=== PATIENT | female | born 1935 | race Caucasian/White ===

== ENCOUNTER 2022-01-25 12:07 | Inpatient (IN) | payer MEDICARE, OTHER ==
[2022-01-25] MEDS ORDERED: hydrALAZINE 20 MG/ML VIAL ONE (13:11)
[2022-01-25] MEDS ORDERED: Ondansetron PF 4 MG/2 ML Vial IVP PRN (13:55)
[2022-01-25 14:03] LABS: Hemoglobin 11.8 g/dL (12.0-15.5); Mean Corpuscular HGB CONC 31.4 g/dL (32.0-36.0); Mean Corpuscular Hemoglobin 23.2 pg (27.0-33.0); Mean Corpuscular Volume 73.9 fl (81.6-98.3); Platelet Count 238 10x3/uL (150-450); RBC Distribution Width 18.1 % (11.5-14.5); Red Blood Cell (RBC) Count 5.09 10x6/uL (3.90-5.03); White Blood Cell (WBC) Count 20.2 10x3/uL (3.5-10.5)
[2022-01-25 14:05] LABS: MDiff Complete? YES
[2022-01-25] MEDS ORDERED: Morphine 4 MG/ML VIAL ONE (14:14)
[2022-01-25 14:17] LABS: ALT (SGPT) 17 U/L (8-55); AST (SGOT) 23 U/L (5-34); Albumin 3.9 g/dL (3.4-4.8); Alkaline Phosphatase 88 U/L (40-110); Anion Gap 14 mmol/L (10-20); BUN (Urea Nitrogen) 23 mg/dL (9.8-20.1); Bilirubin, Total 0.9 mg/dL (0.2-1.2); Calc. Creatinine Clearance 0 mL/min (70-130); Calcium 9.8 mg/dL (7.8-10.44); Carbon Dioxide 25 mmol/L (23-31); Chloride 104 mmol/L (98-107); Estimated GFR 72; Globulin 3.1 g/dL (2.4-3.5); Glucose 155 mg/dL (83-110); Potassium 3.3 mmol/L (3.5-5.1); Sodium 140 mmol/L (136-145)
[2022-01-25 14:26] LABS: Bilirubin Neg (Negative); Blood, Urine Negative (Negative); Clarity Slightly Cloudy (Clear); Glucose, Urine (Dipstick) Normal (Negative); Ketone, Urine Negative (Negative); Leukocyte Negative (Negative); Nitrite Positive (Negative); Protein, Urine (Dipstick) 15 mg/dl (Neg-Trace); Urobilinogen Normal mg/dL (Less than 2)
[2022-01-25 15:10] LABS: Prothrombin Time 10.9 sec (9.5-12.1)
[2022-01-25 15:19] LABS: Bacteria/HPF 4+ HPF (None Seen); RBC/HPF None Seen HPF (0-3); Squamous Epithelial 0-3 HPF (0-3); WBC/HPF 0-3 HPF (0-3)
[2022-01-25] MEDS: Sodium Chloride 0.9% 1,000 ML IV SCH (16:50)
[2022-01-25 17:21] VITALS: BMI 25.3
[2022-01-25] MEDS ORDERED: Potassium Chloride 20 MEQ TAB PO SCH (18:00)
[2022-01-25] MEDS: Morphine 4 MG/ML VIAL SLOW IVP PRN ×2 (18:02→21:28)
[2022-01-25 18:40] LABS: Eosinophils 1 % (0-10); Lymphocytes 2 % (21-51); Monocytes 3 % (0-10); Neutrophil 94 % (42-75)
[2022-01-25 18:41] LABS: Platelet Morphology Comment Appears Adequate; RBC Morphology Normal
[2022-01-25] MEDS: Labetalol HCl 100 MG/20 ML VIAL SLOW IVP PRN (21:22)
[2022-01-25 22:01] LABS: SARS-CoV-2 NAA Rapid Test Not Detected (NotDetected)
[2022-01-26 04:47] LABS: #Basophils 0.1 10x3/uL (0.0-0.2); #Eosinphils 0.2 10x3/uL (0.0-0.5); #Monocytes 0.8 10x3/uL (0.0-1.1); #Neutrophils 12.3 10x3/uL (1.5-8.4); %Basophils 0.3 % (0.0-2.0); %Eosinophils 1.6 % (0.0-6.0); %Monocytes 5.4 % (0.0-10.0); %Neutrophils 85.4 % (40.0-75.0); Hemoglobin 11.6 g/dL (12.0-15.5); Mean Corpuscular HGB CONC 31.4 g/dL (32.0-36.0); Mean Corpuscular Hemoglobin 23.1 pg (27.0-33.0); Mean Corpuscular Volume 73.5 fl (81.6-98.3); Mean Platelet Volume 11.2 fl (7.4-10.4); Platelet Count 225 10x3/uL (150-450); RBC Distribution Width 18.4 % (11.5-14.5); Red Blood Cell (RBC) Count 5.02 10x6/uL (3.90-5.03); White Blood Cell (WBC) Count 14.5 10x3/uL (3.5-10.5)
[2022-01-26 04:56] LABS: Anion Gap 13 mmol/L (10-20); BUN (Urea Nitrogen) 17 mg/dL (9.8-20.1); Calc. Creatinine Clearance 59 mL/min (70-130); Calcium 9.3 mg/dL (7.8-10.44); Carbon Dioxide 23 mmol/L (23-31); Chloride 104 mmol/L (98-107); Estimated GFR 80; Glucose 174 mg/dL (83-110); Sodium 136 mmol/L (136-145)
[2022-01-26] MEDS: Labetalol HCl 100 MG/20 ML VIAL SLOW IVP PRN ×2 (06:01→11:59)
[2022-01-26] MEDS: Famotidine/PF 20 mg/2ml Vial SLOW IVP SCH (07:39)
[2022-01-26] MEDS ORDERED: Bupivacaine PF 0.5% 30 ML VIAL ONE (10:50)
[2022-01-26] MEDS ORDERED: Tranexamic Acid 1,000 MG/10 ML VIAL ONE (10:50)
[2022-01-26] MEDS ORDERED: Neomycin-Polymyxin 1 ML AMP ONE (10:51)
[2022-01-26] MEDS ORDERED: EPINEPHrine 1 MG/ML AMP ONE (10:51)
[2022-01-26] MEDS: Sodium Chloride 0.9% 1,000 ML IV SCH (11:57)
[2022-01-26] MEDS ORDERED: CEFAZOLIN 2 GM in Sodium Chloride 0.9% 100 ML IVPB SCH (13:00)
[2022-01-26] MEDS ORDERED: Fentanyl 100 MCG/2 ML VIAL ONE (14:23)
[2022-01-26] MEDS ORDERED: Rocuronium Bromide 10 MG/ML (10ML VIAL) ONE (14:23)
[2022-01-26] MEDS ORDERED: PROPOFOL 20 ML ONE (14:23)
[2022-01-26] MEDS ORDERED: Lidocaine 1% PF 5 ML VIAL ONE (14:23)
[2022-01-26] MEDS ORDERED: CEFAZOLIN 1 GM VIAL ONE (14:41)
[2022-01-26] MEDS ORDERED: Ondansetron PF 4 MG/2 ML Vial ONE (15:12)
[2022-01-26] MEDS ORDERED: PHENYLEPHRINE-NS 100 MCG/ML 10 ML SYRINGE ONE (15:14)
[2022-01-26] MEDS ORDERED: Glycopyrrolate 0.2 MG/ML 5 ML SYRINGE ONE (15:14)
[2022-01-26] MEDS ORDERED: hydrALAZINE 20 MG/ML VIAL ONE (16:17)
[2022-01-26] MEDS ORDERED: HumaLOG 300 UNITS/3 ML VIAL SC PRN (18:32)
[2022-01-26] MEDS ORDERED: Dextrose 50% Abboject 50 ML SYRINGE SLOW IVP PRN (18:32)
[2022-01-26] MEDS ORDERED: Dextrose 5% in Water 1,000 ML IV PRN (18:32)
[2022-01-26] MEDS ORDERED: Acetaminophen 325 MG TAB PO PRN (18:51)
[2022-01-26] MEDS ORDERED: HYDROcodone/Acetaminophen 10/325 mg Tablet PO PRN (18:52)
[2022-01-26] MEDS ORDERED: HYDROcodone/Acetaminophen 5/325 mg Tablet PO PRN (18:52)
[2022-01-26] MEDS ORDERED: Morphine 2 MG/ML VIAL SLOW IVP PRN (19:13)
[2022-01-26] MEDS ORDERED: Cipro 250 MG TAB PO SCH (20:00)
[2022-01-26] MEDS: Atorvastatin Calcium 40 MG TAB PO SCH (20:40)
[2022-01-26] MEDS: Metoprolol Tartrate 25 MG TAB PO SCH (20:46)
[2022-01-26] MEDS: CEFAZOLIN 2 GM in Sodium Chloride 0.9% 100 ML IVPB SCH (22:10)
[2022-01-27] MEDS ORDERED: Haloperidol Lactate 5 MG/ML VIAL IM SCH (00:30)
[2022-01-27] MEDS: Labetalol HCl 100 MG/20 ML VIAL SLOW IVP PRN (01:53)
[2022-01-27] MEDS: hydrALAZINE 20 MG/ML VIAL SLOW IVP PRN (04:24)
[2022-01-27 05:00] LABS: #Basophils 0.1 10x3/uL (0.0-0.2); #Eosinphils 0.1 10x3/uL (0.0-0.5); #Monocytes 1.1 10x3/uL (0.0-1.1); #Neutrophils 13.3 10x3/uL (1.5-8.4); %Basophils 0.4 % (0.0-2.0); %Eosinophils 0.7 % (0.0-6.0); %Lymphocytes 5.2 % (18.0-47.0); %Monocytes 6.9 % (0.0-10.0); %Neutrophils 86.2 % (40.0-75.0); Hemoglobin 10.9 g/dL (12.0-15.5); Mean Corpuscular HGB CONC 32.4 g/dL (32.0-36.0); Mean Corpuscular Hemoglobin 23.6 pg (27.0-33.0); Mean Corpuscular Volume 72.9 fl (81.6-98.3); Mean Platelet Volume 11.6 fl (7.4-10.4); Platelet Count 227 10x3/uL (150-450); RBC Distribution Width 18.7 % (11.5-14.5); Red Blood Cell (RBC) Count 4.61 10x6/uL (3.90-5.03); White Blood Cell (WBC) Count 15.5 10x3/uL (3.5-10.5)
[2022-01-27 05:01] LABS: Anion Gap 15 mmol/L (10-20); BUN (Urea Nitrogen) 17 mg/dL (9.8-20.1); Calc. Creatinine Clearance 54 mL/min (70-130); Calcium 8.8 mg/dL (7.8-10.44); Carbon Dioxide 22 mmol/L (23-31); Chloride 105 mmol/L (98-107); Estimated GFR 73; Glucose 181 mg/dL (83-110); Potassium 3.8 mmol/L (3.5-5.1); Sodium 138 mmol/L (136-145)
[2022-01-27] MEDS: Cipro 250 MG TAB PO SCH ×2 (06:10→20:32)
[2022-01-27] MEDS: metFORMIN 500 MG TAB PO SCH ×2 (09:25→18:48)
[2022-01-27] MEDS: Lisinopril 20 MG TAB PO SCH (09:25)
[2022-01-27] MEDS: Metoprolol Tartrate 25 MG TAB PO SCH ×2 (09:27→20:33)
[2022-01-27] MEDS: Hydrochlorothiazide 25 MG TAB PO SCH (09:27)
[2022-01-27] MEDS: Famotidine/PF 20 mg/2ml Vial SLOW IVP SCH (09:28)
[2022-01-27] MEDS: Enoxaparin Sodium 40 MG/0.4 ML SYRINGE SC SCH (09:28)
[2022-01-27] MEDS: Atorvastatin Calcium 40 MG TAB PO SCH (20:32)
[2022-01-27] MEDS: CEFAZOLIN 2 GM in Sodium Chloride 0.9% 100 ML IVPB SCH (22:01)
[2022-01-28 05:37] LABS: #Eosinphils 0.3 10x3/uL (0.0-0.5); #Monocytes 1.2 10x3/uL (0.0-1.1); #Neutrophils 10.5 10x3/uL (1.5-8.4); %Basophils 0.3 % (0.0-2.0); %Eosinophils 2.5 % (0.0-6.0); %Lymphocytes 7.5 % (18.0-47.0); %Monocytes 8.9 % (0.0-10.0); %Neutrophils 80.3 % (40.0-75.0); Hemoglobin 9.6 g/dL (12.0-15.5); Mean Corpuscular HGB CONC 31.2 g/dL (32.0-36.0); Mean Corpuscular Hemoglobin 23.4 pg (27.0-33.0); Mean Corpuscular Volume 74.9 fl (81.6-98.3); Mean Platelet Volume 11.6 fl (7.4-10.4); Platelet Count 203 10x3/uL (150-450); RBC Distribution Width 18.6 % (11.5-14.5); Red Blood Cell (RBC) Count 4.11 10x6/uL (3.90-5.03)
[2022-01-28] MEDS: Cipro 250 MG TAB PO SCH (05:39)
[2022-01-28 05:47] LABS: Anion Gap 11 mmol/L (10-20); BUN (Urea Nitrogen) 26 mg/dL (9.8-20.1); Calc. Creatinine Clearance 55 mL/min (70-130); Calcium 8.7 mg/dL (7.8-10.44); Carbon Dioxide 24 mmol/L (23-31); Chloride 107 mmol/L (98-107); Estimated GFR 74; Glucose 137 mg/dL (83-110); Potassium 3.5 mmol/L (3.5-5.1); Sodium 138 mmol/L (136-145)
[2022-01-28] MEDS: Enoxaparin Sodium 40 MG/0.4 ML SYRINGE SC SCH ×2 (09:12→09:29)
[2022-01-28] MEDS: metFORMIN 500 MG TAB PO SCH ×2 (09:12→17:18)
[2022-01-28] MEDS: Lisinopril 20 MG TAB PO SCH (09:13)
[2022-01-28] MEDS: Hydrochlorothiazide 25 MG TAB PO SCH (09:13)
[2022-01-28] MEDS: Famotidine/PF 20 mg/2ml Vial SLOW IVP SCH (09:13)
[2022-01-28] MEDS: Metoprolol Tartrate 25 MG TAB PO SCH ×2 (09:14→21:59)
[2022-01-28] MEDS ORDERED: Lorazepam 0.5 MG TAB PO PRN (16:26)
[2022-01-28] MEDS ORDERED: Melatonin 3 MG TAB PO PRN (16:31)
[2022-01-28] MEDS ORDERED: Lisinopril 10 MG TAB PO SCH (21:00)
[2022-01-28] MEDS: CEFAZOLIN 1 GM in Sodium Chloride 0.9% 100 ML IVPB SCH (21:47)
[2022-01-28] MEDS: Atorvastatin Calcium 40 MG TAB PO SCH (21:58)
[2022-01-28] MEDS: Lisinopril 10 MG TAB PO SCH (21:59)
[2022-01-28] MEDS: hydrALAZINE 20 MG/ML VIAL SLOW IVP PRN (23:27)
[2022-01-29 05:14] LABS: #Eosinphils 0.5 10x3/uL (0.0-0.5); #Monocytes 1.2 10x3/uL (0.0-1.1); #Neutrophils 9.8 10x3/uL (1.5-8.4); %Basophils 0.3 % (0.0-2.0); %Eosinophils 4.1 % (0.0-6.0); %Lymphocytes 9.6 % (18.0-47.0); %Monocytes 9.3 % (0.0-10.0); %Neutrophils 76.2 % (40.0-75.0); Hemoglobin 9.1 g/dL (12.0-15.5); Mean Corpuscular HGB CONC 31.6 g/dL (32.0-36.0); Mean Corpuscular Hemoglobin 23.5 pg (27.0-33.0); Mean Corpuscular Volume 74.2 fl (81.6-98.3); Mean Platelet Volume 11.7 fl (7.4-10.4); Platelet Count 228 10x3/uL (150-450); RBC Distribution Width 18.6 % (11.5-14.5); Red Blood Cell (RBC) Count 3.88 10x6/uL (3.90-5.03); White Blood Cell (WBC) Count 12.9 10x3/uL (3.5-10.5)
[2022-01-29 05:23] LABS: Anion Gap 10 mmol/L (10-20); BUN (Urea Nitrogen) 37 mg/dL (9.8-20.1); Calc. Creatinine Clearance 55 mL/min (70-130); Calcium 8.6 mg/dL (7.8-10.44); Carbon Dioxide 23 mmol/L (23-31); Chloride 106 mmol/L (98-107); Estimated GFR 74; Glucose 130 mg/dL (83-110); Potassium 3.3 mmol/L (3.5-5.1); Sodium 136 mmol/L (136-145)
[2022-01-29 05:31] LABS: Iron 13 ug/dL (50-170); Iron Binding Capacity, Total 206 mcg/dL (265-497)
[2022-01-29] MEDS: CEFAZOLIN 1 GM in Sodium Chloride 0.9% 100 ML IVPB SCH ×3 (05:31→23:18)
[2022-01-29 06:11] LABS: Iron 13 ug/dL (50-170); Iron Binding Capacity, Total 206 mcg/dL (265-497)
[2022-01-29] MEDS: Enoxaparin Sodium 40 MG/0.4 ML SYRINGE SC SCH (08:59)
[2022-01-29] MEDS: metFORMIN 500 MG TAB PO SCH ×2 (08:59→18:58)
[2022-01-29] MEDS: Famotidine/PF 20 mg/2ml Vial SLOW IVP SCH (08:59)
[2022-01-29] MEDS: Hydrochlorothiazide 25 MG TAB PO SCH (09:00)
[2022-01-29] MEDS: Metoprolol Tartrate 25 MG TAB PO SCH ×2 (09:03→23:30)
[2022-01-29] MEDS ORDERED: Potassium Chloride 20 MEQ TAB PO SCH (14:30)
[2022-01-29] MEDS: Atorvastatin Calcium 40 MG TAB PO SCH (23:30)
[2022-01-29] MEDS: Lisinopril 10 MG TAB PO SCH (23:31)
[2022-01-30] MEDS: CEFAZOLIN 1 GM in Sodium Chloride 0.9% 100 ML IVPB SCH ×2 (05:01→13:29)
[2022-01-30 05:28] LABS: #Basophils 0.1 10x3/uL (0.0-0.2); #Eosinphils 0.5 10x3/uL (0.0-0.5); #Monocytes 1.3 10x3/uL (0.0-1.1); %Basophils 0.4 % (0.0-2.0); %Eosinophils 3.6 % (0.0-6.0); %Lymphocytes 11.5 % (18.0-47.0); %Monocytes 9.4 % (0.0-10.0); %Neutrophils 74.5 % (40.0-75.0); Hemoglobin 9.2 g/dL (12.0-15.5); Mean Corpuscular HGB CONC 31.7 g/dL (32.0-36.0); Mean Corpuscular Hemoglobin 23.3 pg (27.0-33.0); Mean Corpuscular Volume 73.4 fl (81.6-98.3); Platelet Count 255 10x3/uL (150-450); RBC Distribution Width 18.8 % (11.5-14.5); Red Blood Cell (RBC) Count 3.95 10x6/uL (3.90-5.03); White Blood Cell (WBC) Count 13.4 10x3/uL (3.5-10.5)
[2022-01-30 05:53] LABS: Anion Gap 13 mmol/L (10-20); BUN (Urea Nitrogen) 28 mg/dL (9.8-20.1); Calc. Creatinine Clearance 60 mL/min (70-130); Calcium 8.9 mg/dL (7.8-10.44); Carbon Dioxide 22 mmol/L (23-31); Chloride 109 mmol/L (98-107); Estimated GFR 82; Glucose 132 mg/dL (83-110); Potassium 3.8 mmol/L (3.5-5.1); Sodium 140 mmol/L (136-145)
[2022-01-30 07:37] VITALS: TEMP 97.6
[2022-01-30] MEDS ORDERED: Ferrous Sulfate 325 MG TAB PO SCH (08:00)
[2022-01-30] MEDS: Hydrochlorothiazide 25 MG TAB PO SCH (09:50)
[2022-01-30] MEDS: Metoprolol Tartrate 25 MG TAB PO SCH (09:51)
[2022-01-30] MEDS: metFORMIN 500 MG TAB PO SCH (09:53)
[2022-01-30] MEDS: Famotidine/PF 20 mg/2ml Vial SLOW IVP SCH (09:53)
[2022-01-30] MEDS: Enoxaparin Sodium 40 MG/0.4 ML SYRINGE SC SCH (09:53)
[2022-01-30 13:03] VITALS: BP 194/73
== END 2022-01-30 16:20 | DRG 522 ==
LOC: CSHERS 12:07 → CSHTELE 15:23
PROVIDERS: ADMIT Internal Medicine; ATTEND Internal Medicine
PROC: 0SRR0JA Replacement of Right Hip Joint, Femoral Surface with Synthetic Substitute, Uncemented, Open Approach (ICD-10-PCS; principal; 2022-01-26)
DX: S72.031A Displaced midcervical fracture of right femur, initial encounter for closed fracture (principal); N39.0 Urinary tract infection, site not specified; I10 Essential (primary) hypertension; I25.2 Old myocardial infarction; E87.6 Hypokalemia; I25.10 Atherosclerotic heart disease of native coronary artery without angina pectoris; E78.5 Hyperlipidemia, unspecified; D50.9 Iron deficiency anemia, unspecified; M25.551 Pain in right hip; B96.20 Unspecified Escherichia coli [E. coli] as the cause of diseases classified elsewhere; Z99.89 Dependence on other enabling machines and devices; Z79.84 Long term (current) use of oral hypoglycemic drugs; W18.39XA Other fall on same level, initial encounter; Z79.899 Other long term (current) drug therapy; Z20.822 Contact with and (suspected) exposure to COVID-19
CPT/HCPCS: 36415; 36416; 71045; 80048; 80053; 81003; 81015; 83540; 83550; 84132; 85025; 85610; 86850; 86900; 86901; 87077; 87086; 87186; 94760; 96374; 96375; C1713; C1776; J0171; J0360; J0690; J1630; J1650; J2270; J2405; J2704; J3010; J3490; J7050; S0020; S0028; U0002

== ENCOUNTER 2022-07-19 09:41 | Outpatient (CLI) | payer MEDICARE, OTHER | END 2022-07-19 09:42 | disposition home or self-care (01) | LOC: CSHWCC 09:41 | PROVIDERS: ATTEND Nurse Practitioner Family | DX: I87.311 Chronic venous hypertension (idiopathic) with ulcer of right lower extremity (principal); L97.812 Non-pressure chronic ulcer of other part of right lower leg with fat layer exposed; I87.312 Chronic venous hypertension (idiopathic) with ulcer of left lower extremity; L97.822 Non-pressure chronic ulcer of other part of left lower leg with fat layer exposed; R60.0 Localized edema | CPT/HCPCS: 29581; 87070; 87077; 87186; 87205; 99203; G0463 ==

== ENCOUNTER 2022-07-27 09:44 | Outpatient (CLI) | payer MEDICARE, OTHER | END 2022-07-27 09:45 | disposition home or self-care (01) | LOC: CSHWCC 09:44 | PROVIDERS: ATTEND Nurse Practitioner Family | DX: I87.311 Chronic venous hypertension (idiopathic) with ulcer of right lower extremity (principal); L97.812 Non-pressure chronic ulcer of other part of right lower leg with fat layer exposed; I87.312 Chronic venous hypertension (idiopathic) with ulcer of left lower extremity; L97.822 Non-pressure chronic ulcer of other part of left lower leg with fat layer exposed; R60.0 Localized edema | CPT/HCPCS: 99213; G0463 ==

== ENCOUNTER 2022-08-03 14:00 | Outpatient (CLI) | payer MEDICARE, OTHER | END 2022-08-03 14:01 | disposition home or self-care (01) | LOC: CSHWCC 14:00 | PROVIDERS: ATTEND Nurse Practitioner Family | DX: I87.311 Chronic venous hypertension (idiopathic) with ulcer of right lower extremity (principal); L97.812 Non-pressure chronic ulcer of other part of right lower leg with fat layer exposed; I87.312 Chronic venous hypertension (idiopathic) with ulcer of left lower extremity; L97.822 Non-pressure chronic ulcer of other part of left lower leg with fat layer exposed; R60.0 Localized edema | CPT/HCPCS: 97139; G0463; 99213 ==

== ENCOUNTER 2022-11-28 10:18 | Outpatient (CLI) | payer MEDICARE, OTHER | END 2022-11-28 10:19 | disposition home or self-care (01) | LOC: CSHWCC 10:18 | PROVIDERS: ATTEND Nurse Practitioner Family | DX: R60.0 Localized edema (principal); E11.621 Type 2 diabetes mellitus with foot ulcer; L97.512 Non-pressure chronic ulcer of other part of right foot with fat layer exposed | CPT/HCPCS: 97139; 97597; G0463; 99213 ==

== ENCOUNTER 2022-12-20 10:06 | Outpatient (CLI) | payer MEDICARE, OTHER | END 2022-12-20 10:07 | disposition home or self-care (01) | LOC: CSHWCC 10:06 | PROVIDERS: ATTEND Nurse Practitioner Family | DX: E11.621 Type 2 diabetes mellitus with foot ulcer (principal); R60.0 Localized edema; L97.512 Non-pressure chronic ulcer of other part of right foot with fat layer exposed; L97.321 Non-pressure chronic ulcer of left ankle limited to breakdown of skin; L97.311 Non-pressure chronic ulcer of right ankle limited to breakdown of skin; L97.811 Non-pressure chronic ulcer of other part of right lower leg limited to breakdown of skin | CPT/HCPCS: 97139; G0463; 99214 ==

== ENCOUNTER 2023-01-17 10:10 | Outpatient (CLI) | payer MEDICARE, OTHER | END 2023-01-17 10:11 | disposition home or self-care (01) | LOC: CSHWCC 10:10 | PROVIDERS: ATTEND Nurse Practitioner Family | DX: E11.621 Type 2 diabetes mellitus with foot ulcer (principal); R60.0 Localized edema; I87.331 Chronic venous hypertension (idiopathic) with ulcer and inflammation of right lower extremity; L97.311 Non-pressure chronic ulcer of right ankle limited to breakdown of skin; L97.512 Non-pressure chronic ulcer of other part of right foot with fat layer exposed; I87.312 Chronic venous hypertension (idiopathic) with ulcer of left lower extremity; L97.321 Non-pressure chronic ulcer of left ankle limited to breakdown of skin | CPT/HCPCS: 11042 ==